=== PATIENT | female | born 1995 | race American Indian/Alaskan Native ===

== ENCOUNTER 2017-03-12 13:54 | Emergency (ER) | payer MEDICAID, OTHER ==
--- NOTE | 2017-03-12 15:52 | XRay Report ---
FINAL REPORT EXAM: XR ANKLE 3+V RT HISTORY: pain rt ankle TECHNIQUE: Three views right ankle PRIORS: None. FINDINGS: No fracture is identified. No dislocation seen. Ankle mortise is intact no evidence of joint space widening. No erosive or degenerative changes are identified. No evidence of joint effusion. IMPRESSION: Negative ankle series
[2017-03-12] MEDS ORDERED: MOTRIN PO ONE (16:18)
--- NOTE | 2017-03-12 16:24 | Emergency Department Report ---
ED Lower Extremity HPI - General Chief Complaint: Extremity Injury, Lower Stated Complaint: ANKLE PAIN Time Seen by Provider: 03/12/17 15:43 Source: patient Mode of arrival: Ambulatory Limitations: No Limitations - History of Present Illness MD Complaint: ankle injury -: Sudden Injury: Ankle: Right Type of Injury: eversion Place: home Severity: moderate Improves With: nothing Worsens With: weight bearing Context: direct blow, other (ROLLED) Associated Symptoms: swelling - Related Data Previous Rx's Medication Instructions Recorded Last Taken Type Acetaminophen/Codeine [Tylenol #3] 1 tab PO Q6H PRN #10 tab 11/05/13 Unknown Rx Ibuprofen [Motrin] 800 mg PO Q8H PRN #20 tablet 11/05/13 Unknown Rx Butalb/Acetaminophen/Caffeine 1 cap PO Q6HR PRN #14 cap 04/19/15 Unknown Rx [Fioricet 50-300-40 mg CAP] Allergies Allergy/AdvReac Type Severity Reaction Status Date / Time chocolate flavor Allergy Rash Verified 04/19/15 18:01 ED Review of Systems ROS: Stated complaint: ANKLE PAIN Other details as noted in HPI Comment: Unobtainable due to pts medical conditions Constitutional: no symptoms reported, see HPI Eyes: as per HPI ENT: as per HPI Respiratory: no symptoms reported, see HPI Cardiovascular: as per HPI Endocrine: no symptoms reported, see HPI Gastrointestinal: as per HPI Genitourinary: as per HPI Musculoskeletal: as per HPI, joint swelling (R ANKLE W MILD ECCHYMOSIS). denies : back pain Skin: as per HPI Neurological: as per HPI Psychiatric: as per HPI Hematological/Lymphatic: as per HPI ED Past Medical Hx - Past Medical History Hx Asthma: Yes - Social History Smoking Status: Current Some Day Smoker - Medications Home Medications: Home Medications Medication Instructions Recorded Confirmed Last Taken Type Acetaminophen/Codeine [Tylenol #3] 1 tab PO Q6H PRN #10 tab 11/05/13 04/19/15 Unknown Rx Ibuprofen [Motrin] 800 mg PO Q8H PRN #20 tablet 11/05/13 04/19/15 Unknown Rx Butalb/Acetaminophen/Caffeine 1 cap PO Q6HR PRN #14 cap 04/19/15 Unknown Rx [Fioricet 50-300-40 mg CAP] ED Physical Exam - General Limitations: No Limitations General appearance: alert - Head Head exam: Present: normocephalic - Eye Eye exam: Present: normal appearance - ENT ENT exam: Present: mucous membranes moist - Neck Neck exam: Present: normal inspection - Respiratory Respiratory exam: Present: normal lung sounds bilaterally - Cardiovascular Cardiovascular Exam: Present: regular rate - Rectal Rectal exam: Present: deferred - Expanded Lower Extremity Exam Right Knee exam: Present: normal inspection Lower Leg exam: Present: normal inspection Ankle exam: Present: tenderness, swelling, ecchymosis. Absent: abrasion, laceration Foot/Toe exam: Present: swelling, ecchymosis Neuro vascular tendon exam: Present: no vascular compromise. Absent: pulse deficit, abnormal cap refill, motor deficit, sensory deficit, tendon deficit 1 - GENERALIZED SWELLING ANKLE 1 - ECCHYMOSIS - Back Exam Back exam: Present: normal inspection - Neurological Exam Neurological exam: Present: alert, oriented X3, CN II-XII intact - Psychiatric Psychiatric exam: Present: normal affect, normal mood - Skin Skin exam: Present: warm, dry ED Course Vital Signs 03/12/17 14:31 Temperature 98 F Pulse Rate 74 Respiratory 18 Rate Blood Pressure 114/70 O2 Sat by Pulse 100 Oximetry - Reevaluation(s) Reevaluation #1: 03/12/17 16:27 TO ER P ROLLING HER R FOOT ON OBJECT ON THE STAIRS NO FALL EVERTED NOW W DIFFUSE SWELLING AND SOME ECCHYMOSIS SEE EXAM XRAY NEG MEDICATED ICE SPLINT/CRUTCHES N/V INTACT EDUCATED PAT ON SPRAIN V FX DC HOME W DC POC AND ORTHO FOLLOW UP ED Lower Extremity MDM - Radiology Data Radiology results: report reviewed, image reviewed - Medical Decision Making SEE NOTE Critical care attestation.: If time is entered above; I have spent that time in minutes in the direct care of this critically ill patient, excluding procedure time. ED Disposition Clinical Impression: Ankle sprain Disposition: DC-01 TO HOME OR SELFCARE Is pt being admited?: No Does the pt Need Aspirin: No Condition: Stable Instructions: Ankle Sprain (ED), Crutch Instructions (ED) Additional Instructions: ICE REST ELEVATE SPLINT CRUTCHES MOTRIN 600 MG PO EVERY 8 HOURS WITH FOOD FOR PAIN FOLLOW UP ORTHO FOR RECHECK ON MONDAY RETURN TO SCHOOL WHEN CLEARED BY ORTHO TO COME OF CRUTCHES Referrals: PRIMARY MD STALIN [Primary Care Provider] - 3-5 Days LUCY GARCIA MD [Staff Physician] - 3-5 Days Time of Disposition: 16:22
[2017-03-12 17:12] VITALS: BP 118/76
== END 2017-03-12 17:09 | disposition home or self-care (01) ==
LOC: ED 13:54
DX: S93.401A Sprain of unspecified ligament of right ankle, initial encounter (principal); J45.909 Unspecified asthma, uncomplicated; F17.200 Nicotine dependence, unspecified, uncomplicated; Z91.018 Allergy to other foods; X58.XXXA Exposure to other specified factors, initial encounter; Y93.9 Activity, unspecified; Y99.9 Unspecified external cause status; Y92.89 Other specified places as the place of occurrence of the external cause
CPT/HCPCS: 99284

== ENCOUNTER 2020-05-02 08:02 | Emergency (ER) | payer SELFPAY ==
[2020-05-02 08:26] VITALS: BP 121/70
--- NOTE | 2020-05-02 08:42 | Emergency Department Report ---
ED Female HPI - General Chief complaint: Urogenital-Female Stated complaint: MISSED PERIOD Time Seen by Provider: 05/02/20 08:28 Source: patient Mode of arrival: Ambulatory Limitations: No Limitations - History of Present Illness Initial comments: This is a 24-year-old obese female. She is in no distress. She denies any past medical history. Patient states that her menstruation is10 days late. She completed multiple home tests and they were all negative. She denies abdominal pain no urinary symptoms no nausea no vomiting no breast tenderness MD Complaint: other - Related Data Previous Rx's Medication Instructions Recorded Last Taken Type Acetaminophen/Codeine [Tylenol #3] 1 tab PO Q6H PRN #10 tab 11/05/13 Unknown Rx Ibuprofen [Motrin] 800 mg PO Q8H PRN #20 tablet 11/05/13 Unknown Rx Butalb/Acetaminophen/Caffeine 1 cap PO Q6HR PRN #14 cap 04/19/15 Unknown Rx [Fioricet 50-300-40 mg CAP] Albuterol Mdi (or & Nicu Only) 2 puff IH QID PRN #1 inhalation 03/12/17 Unknown Rx [ProAir HFA Inhaler] Allergies Allergy/AdvReac Type Severity Reaction Status Date / Time chocolate flavor Allergy Rash Verified 04/19/15 18:01 ED Review of Systems ROS: Stated complaint: MISSED PERIOD Other details as noted in HPI Comment: All other systems reviewed and negative Constitutional: no symptoms reported Respiratory: no symptoms reported Gastrointestinal: denies: abdominal pain, nausea, vomiting, diarrhea, hematemesis Genitourinary: denies: discharge Musculoskeletal: denies: back pain, joint swelling, arthralgia Neurological: denies: headache, weakness, numbness, paresthesias, confusion ED Past Medical Hx - Past Medical History Previous Medical History?: Yes Hx Asthma: Yes - Surgical History Past Surgical History?: No - Social History Smoking Status: Never Smoker Substance Use Type: Alcohol - Medications Home Medications: Home Medications Medication Instructions Recorded Confirmed Last Taken Type Acetaminophen/Codeine [Tylenol #3] 1 tab PO Q6H PRN #10 tab 11/05/13 04/19/15 Unknown Rx Ibuprofen [Motrin] 800 mg PO Q8H PRN #20 tablet 11/05/13 04/19/15 Unknown Rx Butalb/Acetaminophen/Caffeine 1 cap PO Q6HR PRN #14 cap 04/19/15 Unknown Rx [Fioricet 50-300-40 mg CAP] Albuterol Mdi (or & Nicu Only) 2 puff IH QID PRN #1 inhalation 03/12/17 Unknown Rx [ProAir HFA Inhaler] ED Physical Exam - General Limitations: No Limitations General appearance: alert, in no apparent distress - Head Head exam: Present: atraumatic - Eye Eye exam: Present: normal appearance - ENT ENT exam: Present: normal exam - Neck Neck exam: Present: normal inspection - Respiratory Respiratory exam: Present: normal lung sounds bilaterally. Absent: respiratory distress - Cardiovascular Cardiovascular Exam: Present: regular rate, normal heart sounds - GI/Abdominal GI/Abdominal exam: Present: soft, normal bowel sounds. Absent: distended, tenderness, guarding, rebound - Rectal Rectal exam: Present: deferred - Extremities Exam Extremities exam: Present: normal inspection - Back Exam Back exam: Present: normal inspection - Neurological Exam Neurological exam: Present: alert, oriented X3 - Psychiatric Psychiatric exam: Present: normal affect - Skin Skin exam: Present: warm, dry, intact, normal color. Absent: rash ED Course Vital Signs 05/02/20 05/02/20 08:06 10:27 Temperature 98.2 F Pulse Rate 77 78 Respiratory 18 18 Rate Blood Pressure 121/70 O2 Sat by Pulse 99 99 Oximetry ED Medical Decision Making - Medical Decision Making 24-year-old female states her menstruation is 10 days late. She did several home tests and they were all negative. She has no other complaints noted dysuria no frequency no abdominal pain no nausea no vomiting no breast tenderness urinalysis and urine done in the ER and both are negative. Findings discussed with patient Critical Care Time: No Critical care attestation.: If time is entered above; I have spent that time in minutes in the direct care of this critically ill patient, excluding procedure time. ED Disposition Clinical Impression: Missed periods Disposition: DC-01 TO HOME OR SELFCARE Is pt being admited?: No Does the pt Need Aspirin: No Condition: Stable Instructions: Menstruation Additional Instructions: The test done today in the emergency room is negative it does not show that you are . Follow-up with [facility] as soon as possible to evaluate the reason for your missed. Return to the emergency room for severe abdominal pain or heavy menstrual bleeding. Referrals: [facility]IMARY [facility]ARE, [Primary Care Provider] - 3-5 Days MILDRED GARSIA MD [Staff Physician] - 3-5 Days
[2020-05-02 08:50] LABS: HCG Qualitative,Urine Negative (Negative)
[2020-05-02 08:53] LABS: Bacteria,Urine 1+ /HPF (Negative); Bilirubin,Urine NEG (Negative); Blood,Urine NEG (Negative); Color,Urine Yellow (Yellow); Mucus,Urine FEW /HPF
== END 2020-05-02 10:27 | disposition home or self-care (01) ==
LOC: ED 08:02
DX: N92.6 Irregular menstruation, unspecified (principal); J45.909 Unspecified asthma, uncomplicated; Z91.018 Allergy to other foods; Z79.899 Other long term (current) drug therapy
CPT/HCPCS: 81001; 81025; 99283

== ENCOUNTER 2020-11-18 10:50 | Emergency (ER) | payer SELFPAY ==
[2020-11-18 10:59] VITALS: BP 126/79
[2020-11-18 12:43] LABS: Bilirubin,Urine NEG (Negative); Blood,Urine NEG (Negative); Color,Urine Yellow (Yellow); Mucus,Urine FEW /HPF; Protein,Urine <15 mg/dL mg/dL (Negative); Urobilinogen,Urine < 2.0 mg/dL (<2.0)
[2020-11-18 12:46] LABS: HCG Qualitative,Urine Positive (Negative)
--- NOTE | 2020-11-18 13:34 | Emergency Department Report ---
ED General Adult HPI - General Chief complaint: Abdominal Pain Stated complaint: ABDOMINAL PAIN Time Seen by Provider: 11/18/20 11:16 Source: patient Mode of arrival: Ambulatory Limitations: No Limitations - History of Present Illness Initial comments: Patient presents with complaints of lower abdominal pain x2 days. She states the pain is intermittent and cramping. She denies any vaginal bleeding, dyspareunia/vaginal discharge, dysuria/hematuria/urinary frequency, fever/chills/sweats, constipation, or history of abdominal surgeries. Patient states she did have a positive test at home today. Her last menstrual cycle was 10/18/2020. No prior pregnancies per patient. She rates her current pain as a 6/10 in severity -: Sudden - Related Data Previous Rx's Medication Instructions Recorded Last Taken Type Acetaminophen/Codeine [Tylenol #3] 1 tab PO Q6H PRN #10 tab 11/05/13 Unknown Rx Ibuprofen [Motrin] 800 mg PO Q8H PRN #20 tablet 11/05/13 Unknown Rx Butalb/Acetaminophen/Caffeine 1 cap PO Q6HR PRN #14 cap 04/19/15 Unknown Rx [Fioricet 50-300-40 mg CAP] Albuterol Mdi (or & Nicu Only) 2 puff IH QID PRN #1 inhalation 03/12/17 Unknown Rx [ProAir HFA Inhaler] Allergies Allergy/AdvReac Type Severity Reaction Status Date / Time chocolate flavor Allergy Rash Verified 04/19/15 18:01 ED Review of Systems ROS: Stated complaint: ABDOMINAL PAIN Other details as noted in HPI Constitutional: denies: chills, fever, malaise Respiratory: denies: cough, shortness of breath Cardiovascular: denies: chest pain Gastrointestinal: abdominal pain. denies: nausea, vomiting Genitourinary: denies: urgency, dysuria, frequency, hematuria, discharge, abno rmal menses, dyspareunia Skin: denies: rash, lesions, change in color Hematological/Lymphatic: denies: swollen glands ED Past Medical Hx - Past Medical History Previous Medical History?: Yes Hx Asthma: Yes - Social History Smoking Status: Current Some Day Smoker - Medications Home Medications: Home Medications Medication Instructions Recorded Confirmed Last Taken Type Acetaminophen/Codeine [Tylenol #3] 1 tab PO Q6H PRN #10 tab 11/05/13 04/19/15 Unknown Rx Ibuprofen [Motrin] 800 mg PO Q8H PRN #20 tablet 11/05/13 04/19/15 Unknown Rx Butalb/Acetaminophen/Caffeine 1 cap PO Q6HR PRN #14 cap 04/19/15 Unknown Rx [Fioricet 50-300-40 mg CAP] Albuterol Mdi (or & Nicu Only) 2 puff IH QID PRN #1 inhalation 03/12/17 Unknown Rx [ProAir HFA Inhaler] ED Physical Exam - General Limitations: No Limitations General appearance: alert, in no apparent distress, obese - Head Head exam: Present: atraumatic, normocephalic - Eye Eye exam: Present: normal appearance. Absent: scleral icterus - Neck Neck exam: Present: normal inspection - Respiratory Respiratory exam: Present: normal lung sounds bilaterally. Absent: respiratory distress - Cardiovascular Cardiovascular Exam: Present: regular rate, normal rhythm - GI/Abdominal GI/Abdominal exam: Present: soft, normal bowel sounds. Absent: distended, tenderness, guarding, rebound, rigid - Back Exam Back exam: Absent: CVA tenderness (R), CVA tenderness (L) - Neurological Exam Neurological exam: Present: alert, oriented X3, normal gait - Psychiatric Psychiatric exam: Present: normal affect, normal mood - Skin Skin exam: Present: warm, dry, intact, normal color. Absent: rash ED Course Vital Signs 11/18/20 10:58 Temperature 98.2 F Pulse Rate 87 Respiratory 16 Rate Blood Pressure 126/79 O2 Sat by Pulse 99 Oximetry ED Medical Decision Making - Lab Data Result diagrams: 11/18/20 13:50 11/18/20 13:50 Lab Results 11/18/20 11/18/20 11/18/20 Range/Units 13:50 13:50 13:50 WBC 5.7 (4.5-11.0) K/mm3 RBC 4.27 (3.65-5.03) M/mm3 Hgb 13.2 (10.1-14.3) gm/dl Hct 39.3 (30.3-42.9) % MCV 92 (79-97) fl MCH 31 (28-32) pg MCHC 34 (30-34) % RDW 12.6 L (13.2-15.2) % Plt Count 261 (140-440) K/mm3 Lymph % (Auto) 33.9 (13.4-35.0) % Fannin % (Auto) 8.1 H (0.0-7.3) % Eos % (Auto) 2.8 (0.0-4.3) % Baso % (Auto) 0.9 (0.0-1.8) % Lymph # (Auto) 1.9 (1.2-5.4) K/mm3 Fannin # (Auto) 0.5 (0.0-0.8) K/mm3 Eos # (Auto) 0.2 (0.0-0.4) K/mm3 Baso # (Auto) 0.1 (0.0-0.1) K/mm3 Seg Neutrophils % 54.3 (40.0-70.0) % Seg Neutrophils # 3.1 (1.8-7.7) K/mm3 Sodium 138 (137-145) mmol/L Potassium 3.8 (3.6-5.0) mmol/L Chloride 104.1 (98-107) mmol/L Carbon Dioxide 24 (22-30) mmol/L Anion Gap 14 mmol/L BUN 7 (7-17) mg/dL Creatinine 0.6 (0.6-1.2) mg/dL Estimated GFR > 60 ml/min BUN/Creatinine Ratio 12 % Glucose 102 H (65-100) mg/dL Calcium 9.5 (8.4-10.2) mg/dL Total Bilirubin 0.70 (0.1-1.2) mg/dL AST 16 (5-40) units/L ALT 11 (7-56) units/L Alkaline Phosphatase 89 (35-129) units/L Total Protein 7.4 (6.3-8.2) g/dL Albumin 4.0 (3.9-5) g/dL Albumin/Globulin Ratio 1.2 % HCG, Quant 373.1 H (0-4) mIU/mL Urine Color (Yellow) Urine Turbidity (Clear) Urine pH (5.0-7.0) Ur Specific [place] (1.003-1.030) Urine Protein (Negative) mg/dL Urine Glucose (UA) (Negative) mg/dL Urine Ketones (Negative) mg/dL Urine Blood (Negative) Urine Nitrite (Negative) Urine Bilirubin (Negative) Urine Urobilinogen (<2.0) mg/dL Ur Leukocyte Esterase (Negative) Urine WBC (Auto) (0.0-6.0) /HPF Urine RBC (Auto) (0.0-6.0) /HPF U Epithel Cells (Auto) (0-13.0) /HPF Urine Mucus /HPF Urine HCG, Qual (Negative) 11/18/20 Range/Units Unknown WBC (4.5-11.0) K/mm3 RBC (3.65-5.03) M/mm3 Hgb (10.1-14.3) gm/dl Hct (30.3-42.9) % MCV (79-97) fl MCH (28-32) pg MCHC (30-34) % RDW (13.2-15.2) % Plt Count (140-440) K/mm3 Lymph % (Auto) (13.4-35.0) % Fannin % (Auto) (0.0-7.3) % Eos % (Auto) (0.0-4.3) % Baso % (Auto) (0.0-1.8) % Lymph # (Auto) (1.2-5.4) K/mm3 Fannin # (Auto) (0.0-0.8) K/mm3 Eos # (Auto) (0.0-0.4) K/mm3 Baso # (Auto) (0.0-0.1) K/mm3 Seg Neutrophils % (40.0-70.0) % Seg Neutrophils # (1.8-7.7) K/mm3 Sodium (137-145) mmol/L Potassium (3.6-5.0) mmol/L Chloride (98-107) mmol/L Carbon Dioxide (22-30) mmol/L Anion Gap mmol/L BUN (7-17) mg/dL Creatinine (0.6-1.2) mg/dL Estimated GFR ml/min BUN/Creatinine Ratio % Glucose (65-100) mg/dL Calcium (8.4-10.2) mg/dL Total Bilirubin (0.1-1.2) mg/dL AST (5-40) units/L ALT (7-56) units/L Alkaline Phosphatase (35-129) units/L Total Protein (6.3-8.2) g/dL Albumin (3.9-5) g/dL Albumin/Globulin Ratio % HCG, Quant (0-4) mIU/mL Urine Color Yellow (Yellow) Urine Turbidity Clear (Clear) Urine pH 6.0 (5.0-7.0) Ur Specific [place] 1.019 (1.003-1.030) Urine Protein <15 mg/dl (Negative) mg/dL Urine Glucose (UA) Neg (Negative) mg/dL Urine Ketones Neg (Negative) mg/dL Urine Blood Neg (Negative) Urine Nitrite Neg (Negative) Urine Bilirubin Neg (Negative) Urine Urobilinogen < 2.0 (<2.0) mg/dL Ur Leukocyte Esterase Neg (Negative) Urine WBC (Auto) 1.0 (0.0-6.0) /HPF Urine RBC (Auto) 2.0 (0.0-6.0) /HPF U Epithel Cells (Auto) 6.0 (0-13.0) /HPF Urine Mucus Few /HPF Urine HCG, Qual Positive A (Negative) - Radiology Data Radiology results: report reviewed Pelvic Ultrasound HISTORY: Pain and new . TECHNIQUE: Grayscale and color imaging performed. COMPARISON: None FINDINGS: Transabdominal and endovaginal imaging was performed. Uterus measures 8.7 x 3.7 x 5.6 cm with endometrial echocomplex measuring 1.7 cm. No intrauterine gestation is identified. The ovaries are normal in size with tiny follicles. There is also a mildly complex cystic structure in the right ovary which is most likely functional and measures 1.8 cm. No pelvic free fluid. IMPRESSION: 1. No intrauterine gestation identified. Correlate with beta hCG level and if needed repeat pelvic ultrasound. 2. Complex cyst in the right ovary may be functional given the history. Attention to this structure on follow-up also recommended. - Medical Decision Making Ultrasound shows the following: IMPRESSION: 1. No intrauterine gestation identified. Correlate with beta hCG level and if needed repeat pelvic ultrasound. 2. Complex cyst in the right ovary may be functional given the history. Attent ion to this structure on follow-up also recommended. Beta-hCG quantitative = 323. Likely very early in . No bleeding or tenderness of abdomen on exam. Patient has eloped prior to receiving ultrasound results. Critical care attestation.: If time is entered above; I have spent that time in minutes in the direct care of this critically ill patient, excluding procedure time. ED Disposition Clinical Impression: Abdominal pain during Disposition: DC-01 TO HOME OR SELFCARE Is pt being admited?: No Condition: Stable Instructions: Abdominal Pain During , Asiz-wn-Vija, Abdominal Pain (ED) Referrals: [facility] [Provider Group] - 3-5 Days
[2020-11-18 14:09] LABS: Basophils # (Auto) 0.1 K/mm3 (0.0-0.1); Basophils % (Auto) 0.9 % (0.0-1.8); Eosinophils # (Auto) 0.2 K/mm3 (0.0-0.4); Eosinophils % (Auto) 2.8 % (0.0-4.3); Hematocrit 39.3 % (30.3-42.9); Hemoglobin 13.2 gm/dl (10.1-14.3); Lymphocytes # (Auto) 1.9 K/mm3 (1.2-5.4); Lymphocytes % (Auto) 33.9 % (13.4-35.0); Mean Corpuscular HGB Conc 34 % (30-34); Mean Corpuscular Volume 92 fl (79-97); Monocytes # (Auto) 0.5 K/mm3 (0.0-0.8); Monocytes % (Auto) 8.1 % (0.0-7.3); Platelet Count 261 K/mm3 (140-440); Red Blood Count 4.27 M/mm3 (3.65-5.03); Red Cell Distribution Width 12.6 % (13.2-15.2)
[2020-11-18 14:32] LABS: Alanine Aminotransferase 11 units/L (7-56); Blood Urea Nitrogen 7 mg/dL (7-17); Calcium 9.5 mg/dL (8.4-10.2); Hemolysis Index 4
[2020-11-18 14:33] LABS: BUN/Creatinine Ratio 12
--- NOTE | 2020-11-18 15:14 | Ultrasound Report ---
Pelvic Ultrasound HISTORY: Pain and new . TECHNIQUE: Grayscale and color imaging performed. COMPARISON: None FINDINGS: Transabdominal and endovaginal imaging was performed. Uterus measures 8.7 x 3.7 x 5.6 cm with endometrial echocomplex measuring 1.7 cm. No intrauterine ges tation is identified. The ovaries are normal in size with tiny follicles. There is also a mildly complex cystic structure i n the right ovary which is most likely functional and measures 1.8 cm. No pelvic free fluid. IMPRESSION: 1. No intrauterine gestation identified. Correlate with beta hCG level and if needed repeat pelvic ul trasound. 2. Complex cyst in the right ovary may be functional given the history. Attention to this structure o n follow-up also recommended. Signer Name: Pascual Perez MD Signed: 11/18/2020 3:09 PM Workstation Name: [id number]
== END 2020-11-18 15:56 | disposition home or self-care (01) ==
LOC: ED 10:50
DX: O26.891 Other specified pregnancy related conditions, first trimester (principal); R10.9 Unspecified abdominal pain; J45.909 Unspecified asthma, uncomplicated; F17.200 Nicotine dependence, unspecified, uncomplicated; Z91.018 Allergy to other foods; Z79.899 Other long term (current) drug therapy; Z3A.01 Less than 8 weeks gestation of pregnancy
CPT/HCPCS: 36415; 76801; 76817; 80053; 81001; 81025; 84702; 85025; 99284